=== PATIENT | female | born 1985 | race American Indian/Alaskan Native ===

== ENCOUNTER 2016-06-07 09:28 | Emergency (ER) | payer SELFPAY ==
[2016-06-07 09:40] VITALS: BP 130/94
--- NOTE | 2016-06-07 10:21 | Emergency Department Report ---
Chief Complaint: Chest Pain Stated Complaint: LUMP ON CHEST/CHEST PAIN - HPI History of Present Illness: 30-year-old female past medical history none presents with complaint of 2-3 days of intermittent substernal chest pain with mild associated shortness of breath - ROS Review of Systems: 2 through days of substernal chest pain - Exam Vital Signs: Vital Signs 06/07/16 09:36 Temperature 97.7 F Pulse Rate 83 Respiratory 18 Rate Blood Pressure 130/94 O2 Sat by Pulse 100 Oximetry Physical Exam: Heart S1-S2 lungs clear to auscultation abdomen soft nontender MSE screening note: Focused history and physical exam performed. Due to findings the following was ordered: Screening Assessment/Plan/Differential Dx: Chest pain 1- This initial assessment/diagnostic orders/clinical plan/ treatment(s) is/are subject to change based on pt's health status, clinical progression and re- assessment by fellow clinical providers in the ED. Further treatment and workup at subsequent clinical provers discretion. Patient/guardians urged not to elope from ED as their condition may be serious if not clinically assessed and managed. 2-EKG is sinus rhythm, chest x-ray, BMP, CBC, troponin, CK, CK-MB, upreg 3-PERC Rule value=0 criteria No need for further workup, as <2% chance of PE. Well Risk for PE 0.0 points Low risk group: 1.3% chance of PE in an ED population. Another study assigned scores 4 as 'PE Unlikely' and had a 3% incidence of PE. 4- will book pt for main ED due to chest pain. Sypmtoms have abated spontaneously for the now as per patient. ED Disposition for MSE Condition: Stable
[2016-06-07 10:38] LABS: Eosinophils % (Auto) 8.2 % (0.0-4.3); Hematocrit 32.6 % (30.3-42.9); Hemoglobin 10.6 gm/dl (10.1-14.3); Mean Corpuscular HGB Conc 32 % (30-34); Mean Corpuscular Hemoglobin 27 pg (28-32); Mean Corpuscular Volume 83 fl (79-97); Platelet Count 273 K/mm3 (140-440); Red Blood Count 3.96 M/mm3 (3.65-5.03); Red Cell Distribution Width 15.2 % (13.2-15.2)
[2016-06-07 10:54] LABS: Anion Gap 14 mmol/L; BUN/Creatinine Ratio 11.66; Blood Urea Nitrogen 7 mg/dL (7-17); Calcium 8.8 mg/dL (8.4-10.2); Carbon Dioxide 25 mmol/L (22-30); Chloride 103.7 mmol/L (98-107); Creatine Kinase 40 units/L (30-135); Glucose 74 mg/dL (65-100); Potassium 3.7 mmol/L (3.6-5.0); Sodium 139 mmol/L (137-145)
[2016-06-07 10:56] LABS: Creatine Kinase MB < 1.0 ng/mL (0.0-4.0)
--- NOTE | 2016-06-07 11:20 | XRay Report ---
ROUTINE CHEST, TWO VIEWS: HISTORY: chest pain. The trachea, heart, mediastinal contour, lung mancia and bony thorax are unremarkable. IMPRESSION: Unremarkable chest x-ray.
--- NOTE | 2016-06-10 18:31 | ED Elopement Review ---
ED Pt Elopement review - Results review Lab results: Laboratory Tests 06/07/16 06/07/16 06/07/16 10:21 10:21 10:21 WBC 6.0 RBC 3.96 Hgb 10.6 Hct 32.6 MCV 83 MCH 27 L MCHC 32 RDW 15.2 Plt Count 273 Lymph % (Auto) 21.9 [place] % (Auto) 9.5 H Eos % (Auto) 8.2 H Baso % (Auto) 1.0 Lymph # 1.3 [place] # 0.6 Eos # 0.5 H Baso # 0.1 Seg Neutrophils % 59.4 Seg Neutrophils # 3.6 Sodium 139 Potassium 3.7 Chloride 103.7 Carbon Dioxide 25 Anion Gap 14 BUN 7 Creatinine 0.6 L Estimated GFR > 60 BUN/Creatinine Ratio 11.66 Glucose 74 Calcium 8.8 Total Creatine Kinase 40 37 CK-MB (CK-2) < 1.0 CK-MB (CK-2) Rel Index 2.5 Troponin T < 0.010 Urine HCG, Qual 06/07/16 10:21 WBC RBC Hgb Hct MCV MCH MCHC RDW Plt Count Lymph % (Auto) [place] % (Auto) Eos % (Auto) Baso % (Auto) Lymph # [place] # Eos # Baso # Seg Neutrophils % Seg Neutrophils # Sodium Potassium Chloride Carbon Dioxide Anion Gap BUN Creatinine Estimated GFR BUN/Creatinine Ratio Glucose Calcium Total Creatine Kinase CK-MB (CK-2) CK-MB (CK-2) Rel Index Troponin T Urine HCG, Qual Negative - Call Back decision Pt Call Back Decision: Pt to F/U with PMD
== END 2016-06-07 19:00 | disposition left against medical advice (07) ==
LOC: EDBD → ED 09:28
DX: R07.81 Pleurodynia (principal); R06.02 Shortness of breath; Z53.21 Procedure and treatment not carried out due to patient leaving prior to being seen by health care provider
CPT/HCPCS: 36415; 71020; 80048; 81025; 82550; 82553; 84484; 85025; 93005; 93010